=== PATIENT | male | born 1955 | race Caucasian/White ===

== ENCOUNTER 2017-02-26 12:09 | Emergency (ER) | payer OTHER ==
[2017-02-26 12:14] VITALS: TEMP 97.3
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
--- NOTE | 2017-02-26 13:01 | XR ---
EXAMINATION TYPE: XR shoulder complete RT DATE OF EXAM: 02/26/2017 CLINICAL HISTORY: Right shoulder pain after fall injury today. TECHNIQUE: Three views of the right shoulder are obtained. COMPARISON: None. FINDINGS: There is no acute fracture evident in the right shoulder. Ruptures are demineralized. Ther e is joint space loss and spurring at glenohumeral joint. . Acromioclavicular joint separation with i nferior margin of distal clavicle superiorly up to 1.8 cm from inferior margin of acromion is present. The visualized ribs are intact and unremarkable. IMPRESSION: There is acromioclavicular joint separation injury as detailed above.
[2017-02-26 13:08] VITALS: BP 145/73; PULSE 67; RESP 18
[2017-02-26] MEDS ORDERED: HYDROcodone/APAP 5-325MG 1 EACH TAB PO STA (13:10)
== END 2017-02-26 13:21 | disposition home or self-care (01) ==
LOC: EC 12:09
DX: S43.141A Inferior dislocation of right acromioclavicular joint, initial encounter (principal); R40.2412 Glasgow coma scale score 13-15, at arrival to emergency department; Z87.891 Personal history of nicotine dependence; V18.9XXA Unspecified pedal cyclist injured in noncollision transport accident in traffic accident, initial encounter; Y93.89 Activity, other specified
CPT/HCPCS: 99283

== ENCOUNTER 2018-12-29 13:52 | Emergency (ER) | payer OTHER ==
[2018-12-29 14:24] VITALS: BP 121/77; RESP 20; TEMP 98.8
--- NOTE | 2018-12-29 14:40 | XR ---
EXAMINATION TYPE: XR chest 2V DATE OF EXAM: 12/29/2018 COMPARISON: NONE TECHNIQUE: PA and lateral views submitted. HISTORY: Pain FINDINGS: The lungs are clear and there is no pneumothorax, pleural effusion, or focal pneumonia. Heart is pr ominent. Hypertrophic and degenerative changes spine. No overt failure. Right-sided pleural thickenin g noted. IMPRESSION: 1. No acute process.
[2018-12-29] MEDS ORDERED: IPRATROPIUM-ALBUTEROL 3 ML NEB INHALATION STA (15:19)
[2018-12-29] MEDS ORDERED: predniSONE 20 MG TAB PO STA (15:19)
[2018-12-29 15:48] VITALS: PULSE 7
--- NOTE | 2018-12-29 16:05 | ED ---
SOB HPI - General Chief Complaint: Shortness of Breath Stated Complaint: SOB Time Seen by Provider: 12/29/18 15:03 Source: patient, RN notes reviewed Mode of arrival: ambulatory Limitations: no limitations - History of Present Illness Initial Comments: 62-year-old male presents emergency Department with chief complaint of shortness of breath. Patient has underlying COPD and which she only uses albuterol inhaler. Patient states that with his seasonal ALLERGIES been having increased shortness of breath. Patient does get relief with his inhaler. Patient is on no maintenance medications. Patient denies fever, chills, productive cough. Patient denies any chest pain, headache or dizziness. - Related Data Previous Rx's Medication Instructions Recorded Ibuprofen [Motrin] 600 mg PO Q6HR PRN #20 tab 02/26/17 predniSONE 50 mg PO DAILY #5 tab 12/29/18 Allergies Allergy/AdvReac Type Severity Reaction Status Date / Time No Known Allergies Allergy Verified 02/26/17 12:13 Review of Systems ROS Statement: Those systems with pertinent positive or pertinent negative responses have been documented in the HPI. ROS Other: All systems not noted in ROS Statement are negative. Past Medical History Past Medical History: COPD, Hyperlipidemia, Hypertension History of Any Multi-Drug Resistant Organisms: None Reported Past Surgical History: Back Surgery, Orthopedic Surgery Past Psychological History: No Psychological Hx Reported Smoking Status: Former smoker Past Alcohol Use History: None Reported Past Drug Use History: None Reported General Exam Limitations: no limitations General appearance: alert, in no apparent distress Head exam: Present: atraumatic, normocephalic, normal inspection Eye exam: Present: normal appearance, PERRL, EOMI. Absent: scleral icterus, conjunctival injection, periorbital swelling ENT exam: Present: normal exam, mucous membranes moist Neck exam: Present: normal inspection. Absent: tenderness, meningismus, lymphadenopathy Respiratory exam: Present: wheezes (Minimal). Absent: normal lung sounds bilaterally, respiratory distress, rales, rhonchi, stridor Cardiovascular Exam: Present: regular rate, normal rhythm, normal heart sounds. Absent: systolic murmur, diastolic murmur, rubs, gallop, clicks Course Vital Signs 12/29/18 12/29/18 14:20 15:37 Temperature 98.8 F Pulse Rate 67 69 Respiratory 20 Rate Blood Pressure 121/77 O2 Sat by Pulse 93 L Oximetry Medical Decision Making - Medical Decision Making 63-year-old male presenting emergency department because he uses his inhaler more than usual. He has no current symptoms as the symptoms have resolved after use of his inhaler. He did have some mild wheezing on exam was given treatment. Patient was started on steroids for a mild COPD exacerbation related to seasonal ALLERGIES. We discussed he states that follow-up with PCP or pulmonology to discuss preventative medications to slow down his use of abortive medications Disposition Clinical Impression: COPD (chronic obstructive pulmonary disease) Disposition: HOME SELF-CARE Condition: Stable Instructions (If sedation given, give patient instructions): COPD (Chronic Obstructive Pulmonary Disease) (ED) Additional Instructions: Please return to the Emergency Department if symptoms worsen or any other concerns. Prescriptions: predniSONE 50 mg PO DAILY #5 tab Is patient prescribed a controlled substance at d/c from ED?: No Referrals: Yo Flor MD [Primary Care Provider] - 1-2 days Time of Disposition: 16:08
== END 2018-12-29 16:15 | disposition home or self-care (01) ==
LOC: EC 13:52
DX: J44.9 Chronic obstructive pulmonary disease, unspecified (principal); Z98.890 Other specified postprocedural states; Z87.891 Personal history of nicotine dependence
CPT/HCPCS: 94640; 71046; 99285; J7512

== ENCOUNTER → 2020-07-12 | Outpatient (CLI) | payer MEDICARE, BC ==
--- NOTE | 2020-07-12 19:37 | CONS ---
CONSULTATION REASON FOR CONSULTATION: Sleep apnea. This is a 65-year-old male patient with known history of COPD who follows up with Dr. Mccarthy, maintained on Spiriva, smokes about one pack of cigarettes a day. Primary care physician was Dr. Flor and currently Dr. Marcus. The patient is having difficulties in sleep maintenance. He can easily go to sleep in his bedroom in his bed, and within a few hours of falling asleep he will wake up choking and gasping and will move himself to a recliner. On the recliner his sleep quality is better and he can sleep another 5 hours on the recliner without any major difficulties. In the morning he may take a nap or two if needed. He tries to sleep on his side. On his back, he chokes and gasps and has apneas. He is and he is currently living alone. He is also retired. He has gained weight over the years. His weight gain is on the order of 30 pounds over the past 5 years. He has chronic exertional dyspnea. He has resting dyspnea and wheezing, and his room-air pulse ox is around 91%. He can drive a car. No history of any motor vehicle accident because of feeling drowsy or sleepy. No grinding of the teeth. No sleepwalking or sleeptalking. No angina, palpitations or heartburn overnight. No significant shortness of breath overnight. He is averaging around 5 to 7 hours of sleep. PAST MEDICAL HISTORY: Obesity, hypothyroidism, COPD, hyperlipidemia, chronic back pain, osteoarthritis. SURGICAL HISTORY: Surgical history includes knee surgery and back surgery. DRUG ALLERGIES: NOT KNOWN. OUTPATIENT MEDICATION LIST: Outpatient medication list includes: 1. Lovastatin 5 mg p.o. daily. 2. Atenolol 50 mg p.o. daily. 3. Spiriva 1 inhalation a day. 4. Albuterol HFA on a p.r.n. basis. 5. Naprosyn on a p.r.n. basis. 6. Tylenol on a p.r.n. basis. 7. Melatonin on a p.r.n. basis. SOCIAL HISTORY: He smokes one pack of cigarettes a day. No history of alcoholism. No history of IV drugs. 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 FAMILY HISTORY: His brother has obstructive sleep apnea. REVIEW OF SYSTEMS: Fourteen-point review of system was done. Positive findings were all mentioned above in the history of present illness. PHYSICAL EXAMINATION: VITAL SIGNS: BP is 158/72, pulse 67, respirations 20, temperature 96.7, saturation 91% on room air. Height is 5 feet 9 inches, weight is 272. [place] score is 3. Neck size 19 inches. BMI is 40. GENERAL APPEARANCE: Calm, comfortable. HEAD: Atraumatic, normocephalic. NECK: Supple. No JVD. No goiter or neck masses. Mallampati class IV along with an overbite. LUNGS: Clear to auscultation. Diminished. Scattered expiratory wheezes throughout the lung guerrero bilaterally. HEART: Heart sounds are regular rate and rhythm. Normal S1, S2. No S3, S4. No murmurs. ABDOMEN: Soft, nontender. No organomegaly. EXTREMITIES: No edema. No cyanosis or clubbing. IMPRESSION: 1. Sleep maintenance insomnia. The patient is unable to sleep in his bedroom in his bed and he is moving up to a recliner. No major hypersomnia or sleepiness. Nevertheless, his sleep is quite fragmented. He snores and he has episodes of apnea, especially when he is lying down flat in his bed. He has Mallampati class IV with an overbite. Obviously he has features of obstructive sleep apnea that needs to be further investigated. 2. Chronic obstructive pulmonary disease. 3. Chronic hypoxemic respiratory failure. Pulse ox on room air is 91%. 4. Smoker. 5. Obesity with a BMI of 40.1. 6. Chronic back pain. 7. Osteoarthritis. 8. Hyperlipidemia. PLAN: 1. High suspicion for obstructive sleep apnea. 2. Ideally would like to do an in-lab PSG both in bed and on a recliner. He declined that. Will proceed with a home sleep study to assess the presence of sleep apnea and its severity and will offer patient treatment accordingly. I do not think he is very much interested in CPAP therapy at this point; however, this may be an option, especially if he turns out to have severe disease. We will continue to follow. MMODL / IJN: [id number] /
== END | disposition home or self-care (01) ==
LOC: SLEEP 14:06
PROVIDERS: ATTEND Internal Medicine Critical Care Medicine
DX: G47.00 Insomnia, unspecified (principal); J44.9 Chronic obstructive pulmonary disease, unspecified; F17.200 Nicotine dependence, unspecified, uncomplicated; E66.9 Obesity, unspecified; G89.29 Other chronic pain; M54.9 Dorsalgia, unspecified; M19.90 Unspecified osteoarthritis, unspecified site; E78.5 Hyperlipidemia, unspecified; J96.11 Chronic respiratory failure with hypoxia; Z68.41 Body mass index [BMI] 40.0-44.9, adult; Z79.899 Other long term (current) drug therapy; Z79.891 Long term (current) use of opiate analgesic
CPT/HCPCS: 99211

== ENCOUNTER → 2020-09-14 | Outpatient (CLI) | payer MEDICARE, BC ==
--- NOTE | 2020-09-14 09:46 | CTL ---
EXAMINATION TYPE: CT Low Dose Lung DATE OF EXAM ORDERED: 09/14/2020 HISTORY: . Lung cancer screening CT DLP: [address] CTDI: 3.1 mGy Automated exposure control for dose reduction was used. SCREENING VISIT: COMPARISON: None TECHNIQUE: Low dose computed tomography scan was performed through the chest at 1 mm thick sections a nd reconstructed images in the coronal plane at [address] DIAGNOSTIC QUALITY: Satisfactory FINDINGS: Exam limited by artifact. Axial image 87 there is a 2 mm nodule in the right upper lobe. Subsegmental changes at the left lung base most typical of atelectasis. No pleural effusion or pneumothorax. Hear t size is within normal limits. Mild coronary artery calcification and atherosclerotic change aorta. No pleural calcification or pneumothorax. No consolidative pneumonia. Hypertrophic changes of the spi ne. Degenerative changes of the spine. IMPRESSION: 1. Limited exam due to artifact demonstrates a single 2 mm nodule in the right upper lobe likely john gn. CT LUNG RAD AND CT CHEST RECOMMENDATION: Lung-Rad 2 Benign Appearance or Behavior: Continue annual sc reening with LDCT in 12 months. S Modifier (other clinically significant findings): None
== END | disposition home or self-care (01) ==
LOC: RADCTMAIN 09:03
PROVIDERS: ATTEND Internal Medicine
DX: Z12.2 Encounter for screening for malignant neoplasm of respiratory organs (principal); R91.1 Solitary pulmonary nodule; F17.210 Nicotine dependence, cigarettes, uncomplicated
CPT/HCPCS: 71271

== ENCOUNTER → 2020-11-14 | Outpatient (CLI) | payer MEDICARE, BC ==
[2020-11-14 11:40] LABS: African American GFR (CKD) >90 (>60 ml/min/1.73 sqM); Blood Urea Nitrogen 12 mg/dL (9-20); Non-African American GFR(CKD) >90 (>60 ml/min/1.73 sqM)
--- NOTE | 2020-11-14 12:15 | XR ---
EXAMINATION TYPE: XR chest 2V DATE OF EXAM: 11/14/2020 COMPARISON: Chest x-ray 12/29/2018 HISTORY: Prostate cancer TECHNIQUE: Frontal and lateral views of the chest are obtained. FINDINGS: There is no focal air space opacity, pleural effusion, or pneumothorax seen. The cardiac silhouette size is within normal limits. The osseous structures are intact, there is arthropathy in the left shoulder. IMPRESSION: No acute cardiopulmonary process.
--- NOTE | 2020-11-14 13:07 | CT ---
EXAMINATION TYPE: CT abdomen pelvis w con DATE OF EXAM: 11/14/2020 COMPARISON: None. HISTORY: Prostate Cancer CT DLP: 1580 mGycm, Automated Exposure Control for Dose Reduction was Utilized. CONTRAST: CT scan of the abdomen and pelvis is performed with oral and with IV Contrast, patient injected with 100 ml mL of Isovue 300. FINDINGS: LUNG BASES: No significant abnormality is appreciated. LIVER/GB: No significant abnormality is appreciated. PANCREAS: No significant abnormality is seen. SPLEEN: No significant abnormality is seen. ADRENALS: No significant abnormality is seen. KIDNEYS: No significant abnormality is seen. BOWEL: The oral contrast only reaches distal ileal level in the left abdomen. No suspicious small or large bowel dilatation is seen. Normal appendix in the right mid abdomen and lower quadrant. Mild-to- moderate wall thickening throughout the colon is present products of poor distention. No surrounding fat stranding noted. PROSTATE/SEMINAL VESICLES: Prostate gland is slightly enlarged in size. There are some central calcif ications. Heterogeneity centrally. Hypoechoic area in the peripheral zone on the right mid zone level axial image 79. No adjacent adenopathy. LYMPH NODES: No greater than 1cm abdominal or pelvic lymph nodes are appreciated. OSSEOUS STRUCTURES: Moderate multilevel spurring of the spine. Moderate to severe disc space narrowin g with vacuum disc phenomenon L5-S1 level. Facet arthropathy lower lumbar levels. Nonspecific roughly 1.1 cm sclerotic lesion right superior acetabulum coronal image 61. Findings favor benign bone islan d given no additional distinct sclerotic foci noted. OTHER: Mild/moderate calcified plaque of the aorta extends into branch vessels. Some ectasia is seen. No greater than 3.0 cm AAA. IMPRESSION: No convincing evidence of suspicious mass or adenopathy to suggest metastatic disease. N onspecific 1.1 cm sclerotic focus right superior acetabulum is noted and should be correlated with ajay ne scan and PSA values.
--- NOTE | 2020-11-14 17:32 | NM ---
EXAMINATION TYPE: NM bone scan whole body DATE OF EXAM: 11/14/2020 COMPARISON: CT chest 09/14/2020, CT abdomen pelvis 11/14/2020 HISTORY: Prostate carcinoma Delayed whole-body scanning was performed following the injection of 23.4 mCi Tc 99m MDP. Images acq uired 3 hours post injection. FINDINGS: The right seventh rib shows uptake which is consistent with patient's fracture, nonunion. Soft tissue uptake is normal. Uptake within the shoulders, spine, knees, feet, sternoclavicular joints is likely degenerative. No areas of abnormal increased or decreased uptake to suggest metastatic disease. Counselor Supervisor ganesh focus on CT scan at the acetabular roof does not show increased uptake on bone scan. IMPRESSION: No evident metastatic disease.
== END | disposition home or self-care (01) ==
LOC: RADNMMAIN 10:41
PROVIDERS: ATTEND Urology
DX: M25.851 Other specified joint disorders, right hip (principal); C61 Malignant neoplasm of prostate
CPT/HCPCS: 82565; 84520; 71046; 74177; 36415; 78306; A9503; Q9967

== ENCOUNTER → 2020-11-15 | Outpatient (CLI) | payer MEDICARE, BC ==
--- NOTE | 2020-11-15 14:12 | PN ---
PROGRESS NOTE This patient was diagnosed having obstructive sleep apnea. The patient is coming here for a compliancy check. The patient was diagnosed having moderate to severe disease with an AHI of 18 and the patient is currently on CPAP pressure of 10 cm of water. The patient is also being supplemented with oxygen to maintain saturation above 90%, as the patient has demonstrated severe nocturnal oxygen desaturation. The patient spent approximately 66% of sleep time at a pulse ox of 85% and below and this was thought to be related to an overlap between COPD and obstructive sleep apnea. The patient is doing well. He is utilizing his machine every night. He is using AirFit P10 nasal pillow, large size. Based on a 30-day compliancy check, the patient utilized his machine every night and he has achieved more than 4 hours 80% of the time. He is averaging around 5.7 hours of CPAP use per night with a leak of 46 L/minutes. His AHI is down to 1.3. More refreshed and alert during the day. His sleep quality is improved. Nevertheless, he is hoping to get a different mask because of his ongoing leaks through his nasal pillow. No other significant issues otherwise. No reported chest pain, shortness of breath, heartburn. No history of any motor vehicle accident because of feeling drowsy or sleepy. Comorbid conditions have been all stable. PHYSICAL EXAMINATION: VITAL SIGNS: BP is 135/82, pulse 68, respirations 16, temperature is 98.7, saturation 97% on room air. Weight is 258. [place] score is at 5. GENERAL APPEARANCE: Obese, calm, comfortable. HEAD: Atraumatic, normocephalic. NECK: Supple. There is no JVD. No goiter or neck mass. Mallampati class 4. LUNGS: Clear to auscultation. HEART: Heart sounds are regular rate and rhythm. Normal S1, S2. No S3, no S4. No murmurs. ABDOMEN: Soft, nontender. No organomegaly. EXTREMITIES: No edema. No cyanosis or clubbing. IMPRESSION: 1. Obstructive sleep apnea, AHI of 18, currently on CPAP at a pressure of 10 cm of water. 2. Severe nocturnal oxygen desaturation and the patient is currently on CPAP pressure of 10 in conjunction with O2 at 2 L to maintain saturation above 90%. Treatment has been successful for now. 3. Obesity. 4. Hypothyroidism. 5. Hyperlipidemia. 6. Chronic back pain/degenerative arthritis. 7. Chronic hypersomnia improved and the patient's [place] score is down to 5. PLAN: 1. Clinically improved. 2. Sleep quality is improved. 3. Keep CPAP pressure at 10. 4. Drop the AirFit P10 mask and utilize a P30I nasal pillow as an alternative to minimize the leaks. 5. See me back in 6 months' time in followup. Meanwhile, the patient is having some high pressure sensation on and off in the middle of the night. I suggested switching him to an APAP mode at a pressure minimum of 4 maximum of 10 and keeping the starting pressure at 4 with an automatic ramp time. This should hopefully make the patient much more comfortable and along with the change in the mask, he should see much more improvement and further improvement in sleep quality. We will continue to follow. DAMIAN / ESPERANZA: [id number] /
== END ==
LOC: SLEEP 11:05
PROVIDERS: ATTEND Internal Medicine Critical Care Medicine
DX: G47.33 Obstructive sleep apnea (adult) (pediatric) (principal); E66.9 Obesity, unspecified; E03.9 Hypothyroidism, unspecified; E78.5 Hyperlipidemia, unspecified

== ENCOUNTER 2021-03-02 09:18 | Day surgery (SDC) | payer MEDICARE, BC ==
--- NOTE | 2021-02-28 10:11 | P.GSHP ---
History of Present Illness H&P Date: 02/28/21 66 yo male with G8, t2a n0m0 cap, psa 6.7, 30ml, undergoing ebrt/lhrh therapy comes for a Spaceoar injection prior to beginning the prostate radiation - Constitutional Constitutional: Denies chills, Denies fever - EENT Eyes: denies blurred vision, denies pain Ears, nose, mouth and throat: Denies headache, Denies sore throat - Cardiovascular Cardiovascular: Denies chest pain, Denies shortness of breath - Respiratory Respiratory: Denies cough, Denies 7 - Gastrointestinal Gastrointestinal: Denies abdominal pain, Denies diarrhea, Denies nausea, Denies vomiting - Genitourinary (Female) Genitourinary: Denies dysuria, Denies hematuria - Genitourinary (Male) Genitourinary: Denies dysuria, Denies hematuria - Musculoskeletal Musculoskeletal: Denies myalgias - Integumentary Integumentary: Denies pruritus, Denies rash - Neurological Neurological: Denies numbness, Denies weakness - Psychiatric Psychiatric: Denies anxiety, Denies depression - Endocrine Endocrine: Denies fatigue, Denies weight change Past Medical History Past Medical History: COPD, Hyperlipidemia, Hypertension History of Any Multi-Drug Resistant Organisms: None Reported Past Surgical History: Back Surgery, Orthopedic Surgery Past Psychological History: No Psychological Hx Reported Past Alcohol Use History: None Reported Past Drug Use History: None Reported Medications and Allergies Home Medications Medication Instructions Recorded Confirmed Type Ibuprofen [Motrin] 600 mg PO Q6HR PRN #20 tab 02/26/17 Rx predniSONE 50 mg PO DAILY #5 tab 12/29/18 Rx Allergies Allergy/AdvReac Type Severity Reaction Status Date / Time No Known Allergies Allergy Verified 02/26/17 12:13 Surgical - Exam - General well developed, well nourished, no distress - Eyes PERRL - ENT no hearing loss - Neck trachea midline - Respiratory normal expansion, normal respiratory effort - Abdomen Abdomen: soft, non tender - Genitourinary testicles present - Integumentary no rash, no growths - Neurologic normal coordination, normal sensation - Musculoskeletal normal gait, normal posture - Psychiatric oriented to time, oriented to person, oriented to place, speech is normal, memory intact Assessment and Plan Assessment: Impression: Caprostate Plan: spaceoar periprostatic injection
[~2021-03-02 09:18] MED LIST: DEXAMETHASONE SOD PHOSPHATE 4 MG/ML 1 ML VIAL IV ONE; HYDROmorphone 0.5 MG/0.5 ML SYRINGE IVP PRN; LACTATED RINGERS 1,000 ML IV SCH; ONDANSETRON 4 MG/2 ML VIAL IVP ONE
[2021-03-02 09:44] VITALS: RESP 16; TEMP 97.7
[2021-03-02] MEDS ORDERED: LIDOCAINE 1% (10MG/ML) FOR IV START SQ ONE (09:48)
[2021-03-02] MEDS ORDERED: MIDAZOLAM 2 MG/2 ML VIAL ONE (11:05)
[2021-03-02] MEDS ORDERED: KETAMINE 10 MG/ML 20 ML VIAL ONE (11:05)
[2021-03-02] MEDS ORDERED: fentaNYL (PF) 50 MCG/ML 2 ML AMP ONE (11:05)
[2021-03-02] MEDS ORDERED: LIDOCAINE 2% INJ 20 MG/ML SQ ONE ×2 (11:07→11:29)
--- NOTE | 2021-03-02 11:44 | P.OP ---
Date of Procedure: 03/02/21 Preoperative Diagnosis: Adenocarcinoma of the Prostate Postoperative Diagnosis: Same Procedure(s) Performed: SpaceOAR Implant Anesthesia: MAC Surgeon: Mitchell Conde Estimated Blood Loss (ml): 10 IV fluids (ml): 350 Pathology: none sent Condition: stable Disposition: PACU Indications for Procedure: 66 yo male with Grady 8, [id number] prostate cancer. His prostate volume was 30 mL, and his PSA level was 6.7. He has elected to be treated with I am RT and androgen deprivation therapy. He now comes for a SpaceOAR implant prior to beginning radiation therapy. Operative Findings: 11 mm separation created between prostate and rectum. Description of Procedure: The patient was taken to the operating room and placed in the dorsolithotomy position, with his legs supported in Gunner stirrups. The external genitalia was prepped and draped sterilely. The Bruel and Kjaer transrectal ultrasound probe was placed intrarectally. The prostate was imaged. The probe was then placed within the stabilizing stand. A spinal needle was advanced under ultrasonic guidance to the level of the urogenital diaphragm, and lidocaine was used to infiltrate the tissues as the needle was withdrawn. Next, the SpaceOAR needle was passed through the midline of the perineum, 1-2 cm anterior to the anal opening. The needle was slowly advanced under ultrasonic guidance until the needle tip was located within the fat plane between the prostate and rectum, at the level of the mid prostate gland. The needle was confirmed to be midline on the axial imaging. A small amount of normal saline was injected for hyd rodissection. Next, the SpaceOAR components were mixed and loaded into the Y connector per protocol. The Y connector was then connected to the needle, and the components were injected slowly over a course of approximately 12 seconds. A total of 10 ml was injected. 11 mm distance was created between the prostate and rectum, as desired. It should be noted that at no point was there any concern of rectal perforation. The needle was withdrawn, as well as the transrectal ultrasound probe, and the procedure was terminated. The patient tolerated the procedure well and was taken to the recovery room in stable condition.
[2021-03-02 12:25] VITALS: BP 104/58; PULSE 55
== END 2021-03-02 12:35 | disposition home or self-care (01) ==
LOC: OR 09:18
PROVIDERS: ATTEND Urology
DX: C61 Malignant neoplasm of prostate (principal); I10 Essential (primary) hypertension; E78.5 Hyperlipidemia, unspecified; J44.9 Chronic obstructive pulmonary disease, unspecified; F17.200 Nicotine dependence, unspecified, uncomplicated; Z85.46 Personal history of malignant neoplasm of prostate
CPT/HCPCS: 55876; C1889; J2001; J2250; J1100; J0690; J2405; J3010

== ENCOUNTER → 2021-06-06 | Outpatient (CLI) | payer MEDICARE, BC ==
--- NOTE | 2021-06-06 17:45 | PN ---
PROGRESS NOTE 66-year-old male patient coming in for an annual check regarding obstructive sleep apnea. The patient is a 66-year-old male patient known having obstructive sleep apnea in addition to hypothyroidism and hyperlipidemia and degenerative arthritis. The patient states that he is a short sleeper and he is sleeping only 4 hours. This is reflected on the compliance data that was noted on his machine. Note that the patient has moderate severe SHERINE with an AHI of 18 and the patient is currently on an APAP at a pressure minimum of 4, maximum of 10. Based on a 30-day compliancy, the patient has used the machine every day. He has achieved more than 4 hours only 4 out of 30 days. He is averaging around 2.9 hours of CPAP use per night. Note that he goes to bed around 10 p.m., wakes up 2:00 am in the morning and he moves to a recliner to watch TV and he sleeps on and off without a CPAP until he gets up at around 5 o'clock in the morning. As such, he is not sleeping in bed all the time. This is probably related to his back pain. His leak from the machine in the order of 20 L/minute and AHI is down to 1.3 while on treatment. He is using AirFit P10 large-sized nasal pillows. His weight is stable. He has lost around 6 pounds since his last evaluation. He has also developed prostate cancer. The patient was treated with radiation therapy. He is having some episodic nocturia. No nighttime shortness of breath or chest pain or shortness of breath. No recent cardiovascular complications. REVIEW OF SYSTEMS: Fourteen-point review of system was done. Positive findings are mentioned in history of present illness. He has nocturia and he has also prostate cancer treated by radiation therapy through [facility] radiation department. His COPD is stable on Spiriva. His blood pressure is also stable. PHYSICAL EXAMINATION: BP is 128/62, pulse 64, respirations 20, temperature 97.7. Saturation is 92% on room air. Height is 5 feet 8 inches, weight is 252 and BMI 37.7. Pryor score is 7. General appearance: Calm, comfortable. Head is atraumatic, normocephalic. Neck: Supple. No JVD. No goiter. No neck mass. Mallampati class 4. Lungs: Clear to auscultation. Heart: Heart sounds are regular rate and rhythm. Normal S1, S2. No murmurs. Abdomen: Soft, nontender. No organomegaly. Extremities: No edema, no cyanosis or clubbing. IMPRESSION: 1. Symptomatic SHERINE, AHI of 18, currently on APAP, pressure minimum of 4, maximum of 10. While on treatment, the patient's treatment is successful. Nevertheless, he seems to be a short sleeper and sleeping around 4 hours at night and he moved to a recliner and he watches television for the rest of the day. He is not having any major tiredness or sleepiness. Pryor score is at 7 and he is not taking any naps during the day. 2. History of prostate cancer with recent radiation therapy. 3. Chronic obstructive pulmonary diseased, currently inactive and stable on Spiriva. 4. Hyperlipidemia. 5. Degenerative arthritis. PLAN: I would recommend extending the number of hours of sleep in bed. Compliance data would look much better if the patient is able to sleep longer hours in bed. Another option is to move the CPAP machine with him to the living room where he can sleep on a recliner. He will be encouraged to lose weight. He has lost around 6 pounds. His supplies are all up to date. The patient is using AirFit P10 nasal pillows. Continue using the same nasal interface for now. We will continue to follow. MMODL / IJN: [id number] /
== END ==
LOC: SLEEP 13:38
PROVIDERS: ATTEND Internal Medicine Critical Care Medicine
DX: G47.33 Obstructive sleep apnea (adult) (pediatric) (principal); J44.9 Chronic obstructive pulmonary disease, unspecified; E78.5 Hyperlipidemia, unspecified; M19.90 Unspecified osteoarthritis, unspecified site; Z85.46 Personal history of malignant neoplasm of prostate; Z92.3 Personal history of irradiation; Z99.89 Dependence on other enabling machines and devices; Z79.899 Other long term (current) drug therapy; Z87.891 Personal history of nicotine dependence

== ENCOUNTER → 2021-12-20 | Outpatient (CLI) | payer MEDICARE, BC ==
--- NOTE | 2021-12-20 14:07 | CTL ---
EXAMINATION TYPE: CT Low Dose Lung DATE OF EXAM ORDERED: 12/20/2021 HISTORY: . Lung cancer screening CT DLP: 157.[address] CTDI: 4.1 mGy Automated exposure control for dose reduction was used. SCREENING VISIT: Subsequent COMPARISON: 09/14/2020 TECHNIQUE: Low dose computed tomography scan was performed through the chest at 1 mm thick sections a nd reconstructed images in the coronal plane at [address] DIAGNOSTIC QUALITY: Satisfactory FINDINGS: LUNG NODULES: None. Previous nodule could not be reidentified. LUNGS: COPD: Severity: Mild correlate for chronic bronchitis. Fibrosis: Severity: None Lymph nodes: None Other findings: None RIGHT PLEURAL SPACE: Effusion: None Calcification: None Thickening: None Pneumothorax: None LEFT PLEURAL SPACE: Effusion: None Calcification: None Thickening: None Pneumothorax: HEART: Heart Size: Normal Coronary calcification: Mild Pericardial effusion: None OTHER FINDINGS: Upper abdomen: Normal Bony thorax: Normal Supraclavicular region: Normal Other: Ascending thoracic aorta at the level of main pulmonary artery is 4.0 cm. The pulmonary bifurc ation is 3.1 cm. IMPRESSION: Negative low-dose CT chest for neoplasm FOLLOW UP CT CHEST RECOMMENDATION: [address] LUNG RAD: 1
== END | disposition home or self-care (01) ==
LOC: RADCTMAIN 07:28
PROVIDERS: ATTEND Internal Medicine
DX: Z12.2 Encounter for screening for malignant neoplasm of respiratory organs (principal)
CPT/HCPCS: 71271

== ENCOUNTER 2022-01-11 07:27 | Day surgery (SDC) | payer MEDICARE, BC ==
[2022-01-09 16:00] VITALS: BMI 34.7
[2022-01-11] MEDS: LACTATED RINGERS 1,000 ML IV SCH ×2 (08:06→08:33)
[2022-01-11 08:13] VITALS: RESP 18; TEMP 97.2
--- NOTE | 2022-01-11 08:32 | P.GSHP ---
History of Present Illness H&P Date: 01/11/22 Chief Complaint: Screening colonoscopy This a 66-year-old male who presents today for screening colonoscopy. Patient denies any significant GI complaints. Past Medical History Past Medical History: Cancer, COPD, Hyperlipidemia, Hypertension, Osteoarthritis (OA), Sleep Apnea/CPAP/BIPAP Additional Past Medical History / Comment(s): USES CPAP. PROSTATE CA DIAGNOSED IN 10/27/20. TB A CHILD. History of Any Multi-Drug Resistant Organisms: None Reported Past Surgical History: Back Surgery, Orthopedic Surgery, Tonsillectomy Additional Past Surgical History / Comment(s): LEFT KNEE OPEN, COLONOSCOPY, Past Anesthesia/Blood Transfusion Reactions: No Reported Reaction Smoking Status: Current every day smoker - Past Family History Mother Family Medical History: Cancer Father Family Medical History: Cancer Additional Family Medical History / Comment(s): PROSTATE Medications and Allergies Home Medications Medication Instructions Recorded Confirmed Type Albuterol Inhaler [Ventolin Hfa 1 puff INHALATION HS 02/28/21 01/11/22 History Inhaler] Naproxen Sodium [Aleve] 220 - 440 mg PO Q6H PRN 02/28/21 01/11/22 History Rosuvastatin Calcium 5 mg PO HS 02/28/21 01/11/22 History Tiotropium 18 Mcg/Puff [Spiriva] 1 puff INHALATION QAM 02/28/21 01/11/22 History atenoloL [Tenormin] 50 mg PO QAM 02/28/21 01/11/22 History Allergies Allergy/AdvReac Type Severity Reaction Status Date / Time No Known Allergies Allergy Verified 01/11/22 08:04 Surgical - Exam Vital Signs Temp Pulse Resp BP Pulse Ox 97.2 F L 69 18 148/81 91 L 01/11/22 08:07 01/11/22 08:07 01/11/22 08:07 01/11/22 08:07 01/11/22 08:07 - General well developed, well nourished, no distress - Eyes PERRL - ENT normal pinna - Neck no masses - Respiratory normal expansion - Cardiovascular Rhythm: regular - Abdomen Abdomen: soft, non tender Assessment and Plan Assessment: We'll perform screening colonoscopy
[2022-01-11] MEDS ORDERED: PROPOFOL 10 MG/ML 20 ML VIAL IV ONE (08:34)
--- NOTE | 2022-01-11 08:53 | P.OP ---
Date of Procedure: 01/11/22 Preoperative Diagnosis: Screening colonoscopy Postoperative Diagnosis: Transverse colon polyp Procedure(s) Performed: Colonoscopy Anesthesia: MAC Surgeon: Abdoul Vidales Pathology: other (Transverse colon polyp) Condition: stable Disposition: PACU Description of Procedure: The patient's placed on the endoscopy table in the lateral position. He received IV sedation. Digital rectal exam performed which revealed a few external hemorrhoids. Colonoscope was then placed patient anus and passed throughout the entire colon. The ileocecal valve was visualized. The right colon appeared normal. In the transverse colon there was a peduncular polyp removed with snare. Scope withdrawn and the remainder the transverse colon appeared normal. In the descending and sigmoid colon was mild diverticular changes. The scope was then brought back the rectum and this appeared normal. Scope withdrawn for patient. Internal and external hemorrhoids are noted.
[2022-01-11 09:16] VITALS: BP 142/78; PULSE 56
== END 2022-01-11 09:53 | disposition home or self-care (01) ==
LOC: ORWHC2ENDO 07:27
PROVIDERS: ATTEND Surgery
DX: Z12.11 Encounter for screening for malignant neoplasm of colon (principal); D12.3 Benign neoplasm of transverse colon; K64.8 Other hemorrhoids; K64.4 Residual hemorrhoidal skin tags; J44.9 Chronic obstructive pulmonary disease, unspecified; E78.5 Hyperlipidemia, unspecified; I10 Essential (primary) hypertension; M19.90 Unspecified osteoarthritis, unspecified site; C61 Malignant neoplasm of prostate; Z80.42 Family history of malignant neoplasm of prostate; Z79.899 Other long term (current) drug therapy; Z87.891 Personal history of nicotine dependence; G47.33 Obstructive sleep apnea (adult) (pediatric)
CPT/HCPCS: 88305; 45385; J2704

== ENCOUNTER → 2022-03-16 | Outpatient (CLI) | payer MEDICARE, BC ==
--- NOTE | 2022-03-16 18:23 | CA ---
Transthoracic Echo Report Name: Tom Shah Age: 67 Gender: M : 1955 Exam Date: 03/16/2022 08:14 Exam Location: [facility] Ht (in): 71 Wt (lb): 245 Ordering Physician: Jai Marcus MD Attending/Referring Phys: Radio Script Writer Dorita Bernal RDCS Procedure CPT: Indications: palpitations R00.2 Cardiac Hx: Technical Quality: Contrast 1: Total Dose (mL): Contrast 2: Total Dose (mL): MEASUREMENTS (Male / Female) Normal Values 2D ECHO LV Diastolic Diameter PLAX 5.4 cm 4.2 - 5.9 / 3.9 - 5.3 cm LV Systolic Diameter PLAX 4.0 cm IVS Diastolic Thickness 1.4 cm 0.6 - 1.0 / 0.6 - 0.9 cm LVPW Diastolic Thickness 1.4 cm 0.6 - 1.0 / 0.6 - 0.9 cm LV Relative Wall Thickness 0.5 RV Internal Dim ED PLAX 3.8 cm LA Systolic Diameter LX 3.8 cm 3.0 - 4.0 / 2.7 - 3.8 cm LA Volume 81.3 cm??? 18 - 58 / 22 - 52 cm??? M-MODE Aortic Root Diameter MM 4.1 cm MV E Point Septal Separation 1.1 cm AV Cusp Separation MM 2.4 cm DOPPLER AV Peak Velocity 152.1 cm/s AV Peak Gradient 9.3 mmHg MV Area PHT 2.3 cm??? Mitral E Point Velocity 80.0 cm/s Mitral A Point Velocity 84.9 cm/s Mitral E to A Ratio 0.9 MV Deceleration Time 324.7 ms TR Peak Velocity 314.1 cm/s TR Peak Gradient 39.5 mmHg Right Ventricular Systolic Press 44.5 mmHg FINDINGS Left Ventricle Left ventricular ejection fraction is estimated at55-60 %. Left ventricular cavity size normal. Moderate concentric left ventricular hypertrophy. Right Ventricle Moderate right ventricular dilatation. Mild pulmonary hypertension. Right Atrium Normal right atrial size. Left Atrium Severely increased left atrial volume. Mildly increased left atrial area. No evidence for an atrial septal defect. Mitral Valve Structurally normal mitral valve. No evidence for mitral valve prolapse. Mild mitral regurgitation. Aortic Valve Trileaflet aortic valve. No aortic valve stenosis or regurgitation. Tricuspid Valve Mild tricuspid regurgitation.structurally normal tricuspid valve. Pulmonic Valve Pulmonic valve not well visualized. Pericardium Normal pericardium. No pericardial effusion. Aorta Mild aortic dilatation at the level of the sinuses of valsalva 41 mm CONCLUSIONS 1. Normal left ventricular size and systolic function 2. Mild mitral and tricuspid regurgitation with mild pulmonary hypertension 3. Mildly dilated ascending aorta Previewed by: Dr. Jai Terrazas MD (Electronically Signed) Final Date: 16 March 2022 18:22
== END | disposition home or self-care (01) ==
LOC: RADECHMAIN 08:13
PROVIDERS: ATTEND Internal Medicine
DX: I07.1 Rheumatic tricuspid insufficiency (principal); I27.20 Pulmonary hypertension, unspecified
CPT/HCPCS: 93306

== ENCOUNTER → 2023-01-11 | Outpatient (CLI) | payer MEDICARE, BC ==
--- NOTE | 2023-01-11 10:08 | CTL ---
EXAMINATION TYPE: CT Low Dose Lung DATE OF EXAM ORDERED: 01/11/2023 HISTORY: . Lung cancer screening CT DLP: [address] CTDI: 2.6 mGy Automated exposure control for dose reduction was used. SCREENING VISIT: COMPARISON: 12/20/2021 TECHNIQUE: Low dose computed tomography scan was performed through the chest at 1 mm thick sections a nd reconstructed images in multiple planes at 1 mm and [address] DIAGNOSTIC QUALITY: Satisfactory FINDINGS: There is a 1 mm nodule posterior segment right lower lobe. Axial image 208. There is no consolidative pneumonia. No pleural effusion or pneumothorax. The heart is mildly enlarged and there is coronary artery calcification. Aorta normal caliber with mi ld atherosclerotic changes. There is a small hiatal hernia. There is multilevel hypertrophic and degenerative changes of the spine. IMPRESSION: 1. There is a 1 mm subpleural nodule right lower lobe which has a benign appearance. 2. Mild coronary artery calcification. CT LUNG RAD AND CT CHEST RECOMMENDATION: Lung-Rad 2 Benign Appearance or Behavior: Continue annual sc reening with LDCT in 12 months.
== END | disposition home or self-care (01) ==
LOC: RADCTMAIN 08:52
PROVIDERS: ATTEND Family Medicine
DX: Z12.2 Encounter for screening for malignant neoplasm of respiratory organs (principal); I25.10 Atherosclerotic heart disease of native coronary artery without angina pectoris; R91.1 Solitary pulmonary nodule; Z87.891 Personal history of nicotine dependence
CPT/HCPCS: 71271

== ENCOUNTER → 2023-01-11 | Outpatient (CLI) | payer MEDICARE, BC ==
--- NOTE | 2023-01-11 09:02 | US ---
EXAMINATION TYPE: US Aorta Screening DATE OF EXAM: 01/11/2023 COMPARISON: CLINICAL INDICATION: Male, 67 years old with history of Z13.6; No hx AAA. HTN controlled with meds. TECHNIQUE: Multiple sonographic images of the abdominal aorta are obtained. FINDINGS: EXAM MEASUREMENTS: Abdominal Aorta: Proximal: 2.2 x 2.6 cm Mid: 2.1 x 2.1 cm Distal: 2.0 x 2.3 cm Bifurcation: Right illiac- 1.1 x 1.2 cm Left illiac- 0.9 x 1.2 cm LINEN TECH NOTES: No AAA visualized at time of scan IMPRESSION: No AAA
== END | disposition home or self-care (01) ==
LOC: RADUSWWP 08:23
PROVIDERS: ATTEND Family Medicine
DX: Z13.6 Encounter for screening for cardiovascular disorders (principal)
CPT/HCPCS: 76706

== ENCOUNTER 2023-02-13 11:09 | Emergency (ER) | payer MEDICARE, BC ==
[2023-02-13 11:35] VITALS: RESP 20
--- NOTE | 2023-02-13 13:01 | ED ---
General Adult HPI - General Chief complaint: Extremity Problem,Nontraumatic Stated complaint: R knee pain Time Seen by Provider: 02/13/23 12:15 Source: patient, RN notes reviewed, old records reviewed Mode of arrival: ambulatory Limitations: no limitations - History of Present Illness Initial comments: This is a 68-year-old male who presents emergency Department complaining of right knee pain for the last 2 weeks. Patient states there's been some soup breath patella swelling he states his been getting a little bit worse. Patient states when he laying flat or not moving it doesn't hurt but when he gets up to walk he does feel some pain in the knee. Patient states he doesn't recall any injury but he sure he probably twisted at some point in time. Patient denies any hip pain patient with any ankle pain patient denies any other problems at this time - Related Data Home Medications Medication Instructions Recorded Confirmed Albuterol Inhaler [Ventolin Hfa 1 puff INHALATION HS 02/28/21 01/11/22 Inhaler] Naproxen Sodium [Aleve] 220 - 440 mg PO Q6H PRN 02/28/21 01/11/22 Rosuvastatin Calcium 5 mg PO HS 02/28/21 01/11/22 Tiotropium 18 Mcg/Puff [Spiriva] 1 puff INHALATION QAM 02/28/21 01/11/22 atenoloL [Tenormin] 50 mg PO QAM 02/28/21 01/11/22 Allergies Allergy/AdvReac Type Severity Reaction Status Date / Time No Known Allergies Allergy Verified 02/13/23 11:36 Review of Systems ROS Statement: Those systems with pertinent positive or pertinent negative responses have been documented in the HPI. ROS Other: All systems not noted in ROS Statement are negative. Past Medical History Past Medical History: Cancer, COPD, Hyperlipidemia, Hypertension, Osteoarthritis (OA), Sleep Apnea/CPAP/BIPAP Additional Past Medical History / Comment(s): USES CPAP. PROSTATE CA DIAGNOSED IN 10/27/20. TB A CHILD. History of Any Multi-Drug Resistant Organisms: None Reported Past Surgical History: Back Surgery, Orthopedic Surgery Additional Past Surgical History / Comment(s): LEFT KNEE OPEN Past Anesthesia/Blood Transfusion Reactions: No Reported Reaction Past Psychological History: No Psychological Hx Reported Smoking Status: Current every day smoker Past Alcohol Use History: None Reported Past Drug Use History: None Reported - Past Family History Mother Family Medical History: Cancer Father Family Medical History: Cancer Additional Family Medical History / Comment(s): PROSTATE General Exam - General Exam Comments Initial Comments: GENERAL Patient is well-developed and well-nourished. Patient is in mild distress. EYES Patient's pupils are equal and round. Extraocular motion is intact SKIN Unremarkable NEURO The patient is alert and oriented 3 PYSCH Patient has normal interpersonal interactions. MUSCULOSKELETAL Patient has supra patella effusion. Patient has no ligamentous laxity. Patient is able to full range of motion. There is no redness and there is no area of warmth Limitations: no limitations Course Vital Signs 02/13/23 11:32 Temperature 98.2 F Pulse Rate 60 Respiratory 20 Rate Blood Pressure 125/77 O2 Sat by Pulse 99 Oximetry Medical Decision Making - Medical Decision Making Was pt. sent in by a medical professional or institution (Dr. PA, HELP DESK SUPPORT SPECIALIST, urgent care, hospital, or [facility]...) When possible be specific @ -No Did you speak to anyone other than the patient for history (EMS, parent, family, police, friend...)? What history was obtained from this source @ -No Did you review nursing and triage notes (agree or disagree)? Why? @ -I reviewed and agree with nursing and triage notes Were old charts reviewed (outside hosp., previous admission, EMS record, old EKG, old radiological studies, urgent care reports/EKG's, [facility] records)? Report findings @ -No old charts were reviewed Differential Diagnosis (chest pain, altered mental status, abdominal pain women, abdominal pain men, vaginal bleeding, weakness, fever, dyspnea, syncope, headache, dizziness, GI bleed, back pain, seizure, CVA, palpatations, mental health, musculoskeletal)? @ -Differential Musculoskeletal Muscular strain, contusion, ligament sprain, fracture, arthritis, septic arthritis, bursitis, cellulitis, muscle spasm, nerve compression, DVT, arterial occlusion, herpes zoster, electrolyte abnormality, tumor.... This is not meant to be in all inclusive list EKG interpreted by me (3pts min.). @ -As above X-rays interpreted by me (1pt min.). @ -X-ray of the knee shows a effusion that is moderate. There is no fracture or acute injury noted CT interpreted by me (1pt min.). @ -None done U/S interpreted by me (1pt. min.). @ -None done What testing was considered but not performed or refused? (CT, X-rays, U/S, labs )? Why? @ -None What meds were considered but not given or refused? Why? @ -None Did you discuss the management of the patient with other professionals (professionals i.e. Dr., PA, HELP DESK SUPPORT SPECIALIST, lab, RT, psych nurse, psych social worker, wire straightening machine operator, teacher, staff nuclear weapons officer, director case management)? Give summary @ -No Was smoking cessation discussed for >3mins.? @ -No Was critical care preformed (if so, how long)? @ -No Were there social determinants of health that impacted care today? How? (Homelessness, low income, unemployed, alcoholism, drug addiction, transportation, low edu. Level, literacy, decrease access to med. care, custodial, rehab)? @ -No Was there de-escalation of care discussed even if they declined (Discuss DNR or withdrawal of care, Hospice)? DNR status @ -No What co-morbidities impacted this encounter? (DM, HTN, Smoking, COPD, CAD, Cancer, CVA, ARF, Chemo, Hep., AIDS, mental health diagnosis, sleep apnea, morbid obesity)? @ -None Was patient admitted / discharged? Hospital course, mention meds given and route, prescriptions, significant lab abnormalities, going to OR and other pertinent info. @ -And had an x-ray that did not show any acute injury did show an effusion. Patient had any immobilizer placed for comfort. Patient will follow-up with orthopedics. Undiagnosed new problem with uncertain prognosis? @ -No Drug Therapy requiring intensive monitoring for toxicity (Heparin, Nitro, Insulin, Cardizem)? @ -No Were any procedures done? @ -No Diagnosis/symptom? @ -Knee effusion Acute, or Chronic, or Acute on Chronic? @ -Acute Uncomplicated (without systemic symptoms) or Complicated (systemic symptoms)? @ -Uncomplicated Side effects of treatment? @ -No Exacerbation, Progression, or Severe Exacerbation? @ -No Poses a threat to life or bodily function? How? (Chest pain, [place], [place], pneumonia, PE, COPD, DKA, ARF, appy, cholecystitis, CVA, Diverticulitis, Homicidal, Suicidal, threat to staff... and all critical care pts) @ -No Disposition Clinical Impression: Knee effusion Disposition: HOME SELF-CARE Condition: Good Is patient prescribed a controlled substance at d/c from ED?: No Referrals: Jovon Montes DO [Doctor of Osteopathic Medicine] - 1-2 days Time of Disposition: 13:47
--- NOTE | 2023-02-13 13:35 | XR ---
EXAMINATION TYPE: XR knee complete RT DATE OF EXAM: 02/13/2023 COMPARISON: NONE HISTORY: Pain TECHNIQUE: Frontal, lateral and oblique images of the right knee are obtained. FINDINGS: There is no acute fracture/dislocation evident. Mild tricompartmental joint space narrowin g with marginal spurring. No osseous erosions. Moderate size suprapatellar joint effusion. The overly ing soft tissue appears unremarkable. Vascular sclerosis. IMPRESSION: 1. No acute fracture or dislocation seen. 2. Moderate size suprapatellar joint effusion. 3. Mild osteoarthritic changes.
[2023-02-13 14:12] VITALS: BP 121/67; PULSE 51; TEMP 98.1
== END 2023-02-13 14:12 | disposition home or self-care (01) ==
LOC: EC 11:09
DX: M25.461 Effusion, right knee (principal); I10 Essential (primary) hypertension; J44.9 Chronic obstructive pulmonary disease, unspecified; E78.5 Hyperlipidemia, unspecified; F17.200 Nicotine dependence, unspecified, uncomplicated; Z79.899 Other long term (current) drug therapy
CPT/HCPCS: 73562; 99283; L1830

== ENCOUNTER → 2023-04-04 | Outpatient (CLI) | payer MEDICARE, BC ==
[2023-04-04 15:18] LABS: ALT 19 U/L (10-49); AST 17 U/L (14-35); Chol/HDL Ratio 3.24 Ratio; LDL Cholesterol,Calculated 111.7 mg/dL (0.0-131.0); VLDL Calculation 14.16 mg/dL (5.00-40.00)
== END | disposition home or self-care (01) ==
LOC: LABWHC1 07:51
PROVIDERS: ATTEND Urology
DX: C61 Malignant neoplasm of prostate (principal); E78.2 Mixed hyperlipidemia
CPT/HCPCS: 36415; 80061; 84153; 84450; 84460

== ENCOUNTER → 2023-10-03 | Outpatient (CLI) | payer MEDICARE, BC | END | disposition home or self-care (01) | LOC: LABWHC1 07:23 | PROVIDERS: ATTEND Urology | DX: C61 Malignant neoplasm of prostate (principal) | CPT/HCPCS: 36415; 84153 ==

== ENCOUNTER → 2024-01-22 | Outpatient (CLI) | payer MEDICARE, BC ==
--- NOTE | 2024-02-10 14:39 | CTL ---
EXAMINATION TYPE: CT Low Dose Lung DATE OF EXAM ORDERED: 01/22/2024 HISTORY: 69-year-old male smoker with a 25+ year pack history. Lung cancer screening. Z12.2,F17.210 N [place] DEPENDENCE, CIGARETTES, [facility] CT DLP: 138.[address] CTDI: 4.0 mGy Automated exposure control for dose reduction was used. SCREENING VISIT: Annual follow-up COMPARISON: 01/11/2023 TECHNIQUE: Low dose computed tomography scan was performed through the chest at 1 mm thick sections a nd reconstructed images in multiple planes at 1 mm and [address] DIAGNOSTIC QUALITY: Satisfactory FINDINGS: The heart is normal size without pericardial effusion. LAD coronary calcifications are present. Borderline ectasia ascending aorta 3.6 cm. Minimal aortic arch calcifications. Bovine configuration t o the aortic arch. Mildly enlarged caliber main right and left pulmonary arteries up to 2.8 cm suggestive of pulmonary a rterial hypertension. There is moderate diffuse bronchial wall thickening. Some patchy groundglass change posterior right l hai baser. Mild emphysematous change. No consolidation or pleural effusion. 6 mm fissural pulmonary nodule left upper lung is unchanged, axial image 77. Some strandy retained secretions within the lower trachea. Calcified granuloma posterior right lower lobe, axial image 224. Visualized upper abdomen shows no gross abnormality. Bones: Moderate degenerative disc disease mid to lower thoracic spine. Some bridging anterior endplat e spondylosis lower thoracic spine. IMPRESSION: 1. Lung-RADS 2, benign. A couple stable pulmonary nodules measuring up to 6 mm. 2. COPD with mild emphysema. The moderate bronchial wall thickening could reflect a prominent compone nt of chronic bronchitis versus superimposed acute bronchitis. Recommend smoking cessation. CT LUNG RAD AND CT CHEST RECOMMENDATION: Lung-Rad 2 Benign Appearance or Behavior: Continue annual sc reening with LDCT in 12 months. S Modifier (other clinically significant findings): None
== END | disposition home or self-care (01) ==
LOC: RADCTMAIN 09:14
PROVIDERS: ATTEND Family Medicine
DX: Z12.2 Encounter for screening for malignant neoplasm of respiratory organs (principal); J43.9 Emphysema, unspecified; Z87.891 Personal history of nicotine dependence
CPT/HCPCS: 71271

== ENCOUNTER → 2024-04-03 | Outpatient (CLI) | payer MEDICARE, BC ==
[2024-04-03 10:38] LABS: ALT 18 U/L (10-49); AST 16 U/L (14-35); Chol/HDL Ratio 2.97 Ratio; LDL Cholesterol,Calculated 86.6 mg/dL (0.0-131.0); Prostate Specific Antigen 0.17 ng/mL (0.000-4.500); VLDL Calculation 12.26 mg/dL (5.00-40.00)
== END | disposition home or self-care (01) ==
LOC: LABWHC1 07:07
PROVIDERS: ATTEND Urology
DX: Z08 Encounter for follow-up examination after completed treatment for malignant neoplasm (principal); E78.2 Mixed hyperlipidemia; C61 Malignant neoplasm of prostate; Z85.46 Personal history of malignant neoplasm of prostate; R35.1 Nocturia; Z00.6 Encounter for examination for normal comparison and control in clinical research program; F17.210 Nicotine dependence, cigarettes, uncomplicated
CPT/HCPCS: 36415; 80061; 84153; 84450; 84460

== ENCOUNTER → 2024-05-04 | Outpatient (CLI) | payer MEDICARE, BC ==
--- NOTE | 2024-05-04 19:21 | US ---
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 No hx of DVT. Patient takes baby aspirin. TECHNIQUE: The lower extremity deep venous system is examined utilizing real time linear array sonog becky with graded compression, color doppler sonography, and spectral doppler. SIDE PERFORMED: Left FINDINGS: VESSELS IMAGED: Common Femoral Vein Deep Femoral Vein Greater Saphenous Vein * Femoral Vein Popliteal Vein Small Saphenous Vein * Proximal Calf Veins (* superficial vessels) Left Leg: No evidence of DVT Grayscale, color doppler, spectral doppler imaging performed of the deep veins of the lower extremiti es. IMPRESSION: 1. No ultrasound evidence for deep venous thrombosis of either lower extremity. [facility], , 05/04/2024 7:19 PM
== END | disposition home or self-care (01) ==
LOC: RADUSWWP 15:35
PROVIDERS: ATTEND Family Medicine
DX: M79.89 Other specified soft tissue disorders (principal)

== ENCOUNTER → 2024-10-22 | Outpatient (CLI) | payer MEDICARE, BC | END | disposition home or self-care (01) | LOC: LABWHC1 07:43 | PROVIDERS: ATTEND Urology | DX: C61 Malignant neoplasm of prostate (principal) | CPT/HCPCS: 36415; 84153 ==